=== PATIENT | male | born 1955 | race Caucasian/White ===

== ENCOUNTER 2017-01-29 05:29 | Day surgery (SDC) | payer BC ==
[~2017-01-29 05:29] MED LIST: CYCLOBENZAPRINE10 M1 PO; HYDROCODON-ACET15 M1 PO; OMEPRAZOLE20 M3 PO
[2017-01-29] MEDS ORDERED: TYLENOL325 M2 PO (10:13)
== END 2017-01-30 11:40 ==
LOC: SRG 05:29 → SHSC 05:30 → ORE 07:35 → PACU 11:07 → 5EB 12:00
PROC: 0SB20ZZ Excision of Lumbar Vertebral Disc, Open Approach (ICD-10-PCS; principal; 2017-01-29)
PROC: 01NB0ZZ Release Lumbar Nerve, Open Approach (ICD-10-PCS; 2017-01-29)
DX: M51.16 Intervertebral disc disorders with radiculopathy, lumbar region (principal); M48.07 Spinal stenosis, lumbosacral region; E66.9 Obesity, unspecified; K21.9 Gastro-esophageal reflux disease without esophagitis; N18.3 Chronic kidney disease, stage 3 (moderate); Z68.35 Body mass index [BMI] 35.0-35.9, adult; Z79.899 Other long term (current) drug therapy; Z88.5 Allergy status to narcotic agent; Z90.89 Acquired absence of other organs; Z98.890 Other specified postprocedural states
CPT/HCPCS: G8978-GP-CI; G8979-GP-CI; G8980-GP-CI; G8987-GO-CJ; G8988-GO-CJ; G8989-GO-CJ; J0690; J1170